=== PATIENT | male | born 1970 | race Caucasian/White ===

== ENCOUNTER 2018-02-23 09:17 | Emergency (ER) | payer MEDICARE, MEDICAID ==
[~2018-02-23] VITALS: Ht 190.5 cm; Wt 90.9 kg
[2018-02-23 09:28] VITALS: BP 142/91
[2018-02-23] MEDS ORDERED: CEPH-572 PO (10:18)
== END 2018-02-23 10:55 | disposition home or self-care (01) ==
LOC: ER 09:19
DX: M96.89 Other intraoperative and postprocedural complications and disorders of the musculoskeletal system (principal); G89.29 Other chronic pain; M19.90 Unspecified osteoarthritis, unspecified site; F12.90 Cannabis use, unspecified, uncomplicated; Z98.890 Other specified postprocedural states; Z91.030 Bee allergy status; Z88.5 Allergy status to narcotic agent; Z88.6 Allergy status to analgesic agent
CPT/HCPCS: 29515; 99284

== ENCOUNTER 2018-02-26 19:53 | Emergency (ER) | payer MEDICARE, MEDICAID ==
[~2018-02-26] VITALS: Ht 190.5 cm; Wt 76.8 kg
[~2018-02-26 19:53] MED LIST: CEPH-572 PO
[2018-02-26 20:34] LABS: BASOPHILS % (AUTO) 0.5 % (0-1); EOSINOPHILS % (AUTO) 0.7 % (0-6); HEMATOCRIT 50.5 % (42.0-52.0); LYMPHOCYTES # (AUTO) 0.8 X10'3 (1.1-4.8); MEAN CORPUSCULAR HEMOGLOBIN 32.8 PG (27.0-31.0); MEAN CORPUSCULAR HGB CONC 33.7 % (33.0-36.5); MEAN CORPUSCULAR VOLUME 97.3 FL (78-98); MEAN PLATELET VOLUME 7.5 FL (7.4-10.4); MONOCYTES # (AUTO) 0.7 X10'3 (0-0.9); MONOCYTES % (AUTO) 14.7 % (2-12); NEUTROPHILS # (AUTO) 3.3 X10'3 (1.8-7.7); NEUTROPHILS % (AUTO) 67.1 % (42-75); PLATELET COUNT 320 X10'3 (140-440); RED BLOOD COUNT 5.19 X10'6 (4.70-6.10); RED CELL DISTRIBUTION WIDTH 13.3 % (11.5-14.5); WHITE BLOOD COUNT 4.9 X10'3 (4.5-11.0)
[2018-02-26 20:54] LABS: PARTIAL THROMBOPLASTIN TIME 32 SECONDS (22-32); PROTHROMBIN TIME 10.4 SECONDS (9.0-12.0)
[2018-02-26] MEDS ORDERED: normal saline 1000ML IV soln IVB ONE (21:00)
[2018-02-26 21:01] LABS: ALANINE AMINOTRANSFERASE 26 U/L (12-78); ALBUMIN/GLOBULIN RATIO 0.9 (1.1-1.5); ALKALINE PHOSPHATASE 76 IU/L (46-116); ANION GAP 12 (8-16); ASPARTATE AMINO TRANSFERASE 25 U/L (10-37); BILIRUBIN,TOTAL 0.5 MG/DL (0.1-1.0); BLOOD UREA NITROGEN 16 MG/DL (7-18); BUN/CREATININE RATIO 15.5 (5.4-32.0); CHLORIDE 96 MMOL/L (99-107); CREATININE 1.03 MG/DL (0.60-1.10); GLUCOSE 106 MG/DL (70-104); POTASSIUM 3.4 MMOL/L (3.5-5.1); SODIUM 134 MMOL/L (135-145); TOTAL PROTEIN 8.6 G/DL (6.4-8.2); eGFR 77 ML/MIN
[2018-02-26] MEDS ORDERED: ondansetron/PF 4mg/2ml inj IV ONE (21:45)
[2018-02-26] MEDS ORDERED: HYDROcodone/acetaminophen 10/325mg tab PO ONE (21:45)
[2018-02-26 22:27] LABS: CLARITY,URINE CLEAR (Clear); COLOR,URINE YELLOW (Yellow); GLUCOSE, URINE NEGATIVE (Neg); KETONES,URINE TRACE mg/dl (Neg); LEUKOCYTE ESTERASE ,URINE NEGATIVE (Neg); NITRITES, URINE NEGATIVE (Neg); OCCULT BLOOD,URINE NEGATIVE (Neg); PH,URINE 5.5 (4.8-8.0); PROTEIN,URINE NEGATIVE (Neg); UROBILINOGEN,URINE 0.2 E.U/dL (0.2-1.0)
[2018-02-26 22:33] LABS: UA COLLECTION TYPE CLN CATCH MIDSTREAM
[2018-02-26] MEDS ORDERED: acetaminophen 325mg tablet PO ONE (23:15)
[2018-02-26 23:31] VITALS: BP 138/91
== END 2018-02-26 23:33 | disposition home or self-care (01) ==
LOC: ER 19:53
DX: R68.83 Chills (without fever) (principal); R60.0 Localized edema; M25.572 Pain in left ankle and joints of left foot; R10.32 Left lower quadrant pain; G89.29 Other chronic pain; M19.90 Unspecified osteoarthritis, unspecified site; F12.90 Cannabis use, unspecified, uncomplicated; Z98.890 Other specified postprocedural states; Z91.030 Bee allergy status; Z88.5 Allergy status to narcotic agent; Z88.6 Allergy status to analgesic agent
CPT/HCPCS: 29515; 36415; 71045; 80053; 81003; 83605; 84145; 84484; 85025; 85610; 85730; 87040; 93005; 96361; 96374; 99285; J2405; J7030; 87077